=== PATIENT | male | born 1945 | race Caucasian/White ===

== ENCOUNTER 2017-03-25 18:30 | Inpatient (IN) | payer OTHER, MEDICARE ==
[~2017-03-25] VITALS: Ht 172.7 cm; Wt 77.3 kg
[~2017-03-25 18:30] MED LIST: AMLO5TAB PO; ASPI-611 PO; ATOR-2 PO; CLOP75TA35 PO; GABA-532 PO; GLIP5TAB13 PO; LOSA50TA37 PO; TRAZ-143 PO
[2017-03-25] MEDS ORDERED: BUPIVAcaine/PF 2.5 mg/ml (0.25%) 30ml vial IJ ONE ×2 (18:55→19:25)
[2017-03-25] MEDS ORDERED: TETanus/Pertussis (Acell)/Diphther VAC/PF (Tdap-Adult) 0.5ml syringe IM ONE (18:55)
[2017-03-25] MEDS ORDERED: bacitracin 15gm ointment TP ONE ×2 (19:10→22:50)
[2017-03-25] MEDS ORDERED: BUPIVAcaine 0.5% inj/PF 30 ml vial IJ ONE (19:10)
[2017-03-25 19:41] LABS: HEMATOCRIT 38.1 % (42.0-52.0); HEMOGLOBIN 13.1 g/dl (14.0-17.9); LYMPHOCYTES % (AUTO) 16.4 % (21-51); MEAN CORPUSCULAR HEMOGLOBIN 30.5 PG (27.0-31.0); MEAN CORPUSCULAR HGB CONC 34.4 % (33.0-36.5); MEAN CORPUSCULAR VOLUME 88.5 FL (78-98); MEAN PLATELET VOLUME 8.6 FL (7.4-10.4); MONOCYTES % (AUTO) 9.2 % (2-12); NEUTROPHILS % (AUTO) 69.8 % (42-75); PLATELET COUNT 188 X10'3 (140-440); RED CELL DISTRIBUTION WIDTH 12.6 % (11.5-14.5); WHITE BLOOD COUNT 8.9 X10'3 (4.5-11.0)
[2017-03-25 19:42] LABS: BASOPHILS # (AUTO) 0.1 X10'3 (0-0.2); BASOPHILS % (AUTO) 0.7 % (0-1); EOSINOPHILS # (AUTO) 0.3 X10'3 (0-0.9); EOSINOPHILS % (AUTO) 3.9 % (0-6); LYMPHOCYTES # (AUTO) 1.5 X10'3 (1.1-4.8); MONOCYTES # (AUTO) 0.8 X10'3 (0-0.9); NEUTROPHILS # (AUTO) 6.2 X10'3 (1.8-7.7)
[2017-03-25 19:56] LABS: ALANINE AMINOTRANSFERASE 26 U/L (12-78); ALBUMIN 3.7 G/DL (3.4-5.0); ALBUMIN/GLOBULIN RATIO 1.1 (1.1-1.5); ALKALINE PHOSPHATASE 114 IU/L (46-116); ANION GAP 9 (8-16); ASPARTATE AMINO TRANSFERASE 15 U/L (10-37); BILIRUBIN,TOTAL 0.6 MG/DL (0.1-1.0); BLOOD UREA NITROGEN 19 MG/DL (7-18); BUN/CREATININE RATIO 12.8 (5.4-32.0); CALCIUM 8.6 MG/DL (8.5-10.1); CHLORIDE 105 MMOL/L (99-107); CREATININE 1.48 MG/DL (0.60-1.10); GLUCOSE 177 MG/DL (70-104); POTASSIUM 3.6 MMOL/L (3.5-5.1); SODIUM 143 MMOL/L (135-145); TOTAL CARBON DIOXIDE 29.1 MMOL/L (24-32); TOTAL PROTEIN 7.1 G/DL (6.4-8.2); eGFR 47 ML/MIN
[2017-03-25 20:04] LABS: MAGNESIUM 1.9 MG/DL (1.5-2.4)
[2017-03-25 21:15] LABS: ETHANOL < 0.010 GM/DL (0.0-0.010)
[2017-03-25] MEDS ORDERED: METF500T PO (23:27)
[2017-03-26 00:10] LABS: URINE AMPHETAMINE SCREEN NEGATIVE (Neg); URINE BARBITUATE SCREEN NEGATIVE (Neg); URINE BENZODIAZEPINES SCREEN NEGATIVE (Neg); URINE CANNABINOID SCREEN NEGATIVE (Neg); URINE COCAINE SCREEN NEGATIVE (Neg); URINE METHADONE SCREEN NEGATIVE (Neg); URINE OPIATE SCREEN NEGATIVE (Neg); URINE PHENCYCLIDINE SCREEN NEGATIVE (Neg)
[2017-03-26] MEDS ORDERED: dextrose 50%-water 50ml dispensing syringe IV PRN ×2 (00:20)
[2017-03-26] MEDS ORDERED: dextrose ORAL solution 15 GM/59 ML bottle PO PRN ×2 (00:20)
[2017-03-26] MEDS ORDERED: magnesium hydroxide 30ml (MOM) UD suspension PO PRN (00:20)
[2017-03-26] MEDS ORDERED: glucagon, human recombinant 1mg kit SUBCUT PRN (00:20)
[2017-03-26] MEDS ORDERED: mag hydrox/Alum hydrox/simeth 30ml oral suspension PO PRN (00:20)
[2017-03-26] MEDS ORDERED: MESSAGE TO PHARMACY PO ONE (00:20)
[2017-03-26] MEDS ORDERED: ondansetron/PF 4mg/2ml inj IV PRN (00:20)
[2017-03-26] MEDS ORDERED: acetaminophen 325mg tablet PO PRN ×2 (00:20)
[2017-03-26] MEDS: traZODone 50mg tablet PO SCH ×2 (01:55→21:10)
[2017-03-26 02:30] VITALS: BP 144/87
[2017-03-26] MEDS: normal saline 1000ml 1,000 ML IV SCH ×3 (02:40→21:19)
[2017-03-26 07:00] VITALS: BP 133/88
[2017-03-26] MEDS: amLODIPine 5mg tablet PO SCH (08:31)
[2017-03-26] MEDS: gabapentin 300mg capsule PO SCH ×2 (08:32→17:26)
[2017-03-26] MEDS: losartan 50mg tablet PO SCH (08:32)
[2017-03-26] MEDS: clopidogrel 75mg tablet PO SCH (08:32)
[2017-03-26] MEDS: atorvastatin 20mg tablet PO SCH (08:33)
[2017-03-26] MEDS: insulin Lispro (HumaLOG) vial - multi-dose SQ SCH ×3 (09:28→19:23)
[2017-03-26 11:00] VITALS: BP 135/71
[2017-03-26] MEDS ORDERED: HYDROcodone/acetaminophen 5mg/325mg tablet PO PRN (13:25)
[2017-03-26] MEDS: HYDROcodone/acetaminophen 10/325mg tab PO PRN ×2 (14:40→19:25)
[2017-03-26 15:00] VITALS: BP_SYST 129; BP_SYST 131; BP_SYST 134; BP_SYST 138; BP_DIAS 68; BP_DIAS 71; BP_DIAS 72; BP_DIAS 80
[2017-03-26 18:45] VITALS: BP 146/86
[2017-03-26] MEDS ORDERED: Insulin Detemir pen SQ SCH (21:00)
[2017-03-26 22:30] VITALS: BP 135/75
[2017-03-27 02:49] VITALS: BP 134/78
[2017-03-27] MEDS: HYDROcodone/acetaminophen 10/325mg tab PO PRN ×2 (04:24→14:13)
[2017-03-27 06:01] LABS: BASOPHILS # (AUTO) 0.1 X10'3 (0-0.2); BASOPHILS % (AUTO) 0.9 % (0-1); EOSINOPHILS # (AUTO) 0.4 X10'3 (0-0.9); EOSINOPHILS % (AUTO) 7.5 % (0-6); HEMATOCRIT 33.1 % (42.0-52.0); HEMOGLOBIN 11.3 g/dl (14.0-17.9); LYMPHOCYTES # (AUTO) 1.4 X10'3 (1.1-4.8); LYMPHOCYTES % (AUTO) 23.1 % (21-51); MEAN CORPUSCULAR HEMOGLOBIN 30.3 PG (27.0-31.0); MEAN CORPUSCULAR HGB CONC 34.2 % (33.0-36.5); MEAN CORPUSCULAR VOLUME 88.6 FL (78-98); MEAN PLATELET VOLUME 8.9 FL (7.4-10.4); MONOCYTES # (AUTO) 0.6 X10'3 (0-0.9); MONOCYTES % (AUTO) 10.8 % (2-12); NEUTROPHILS # (AUTO) 3.4 X10'3 (1.8-7.7); NEUTROPHILS % (AUTO) 57.7 % (42-75); PLATELET COUNT 143 X10'3 (140-440); RED BLOOD COUNT 3.74 X10'6 (4.70-6.10); RED CELL DISTRIBUTION WIDTH 12.7 % (11.5-14.5); WHITE BLOOD COUNT 5.9 X10'3 (4.5-11.0)
[2017-03-27 06:15] LABS: ALBUMIN 2.9 G/DL (3.4-5.0); ANION GAP 8 (8-16); BLOOD UREA NITROGEN 13 MG/DL (7-18); BUN/CREATININE RATIO 11.5 (5.4-32.0); CALCIUM 7.9 MG/DL (8.5-10.1); CHLORIDE 109 MMOL/L (99-107); CREATININE 1.13 MG/DL (0.60-1.10); GLUCOSE 108 MG/DL (70-104); POTASSIUM 3.7 MMOL/L (3.5-5.1); SODIUM 142 MMOL/L (135-145); TOTAL CARBON DIOXIDE 25.2 MMOL/L (24-32); eGFR 64 ML/MIN
[2017-03-27 07:00] VITALS: BP 133/76
[2017-03-27 08:00] VITALS: BP_SYST 127; BP_SYST 133; BP_SYST 137; BP_DIAS 74; BP_DIAS 77; BP_DIAS 80
[2017-03-27] MEDS: clopidogrel 75mg tablet PO SCH (08:28)
[2017-03-27] MEDS: losartan 50mg tablet PO SCH (08:29)
[2017-03-27] MEDS: amLODIPine 5mg tablet PO SCH (08:29)
[2017-03-27] MEDS: atorvastatin 20mg tablet PO SCH (08:29)
[2017-03-27] MEDS: insulin Lispro (HumaLOG) vial - multi-dose SQ SCH ×2 (08:38→14:11)
[2017-03-27] MEDS: normal saline 1000ml 1,000 ML IV SCH ×2 (08:43→16:16)
[2017-03-27 11:00] VITALS: BP 137/75
[2017-03-27] MEDS: gabapentin 300mg capsule PO SCH ×3 (11:25→16:46)
[2017-03-27 15:00] VITALS: BP 135/81
== END 2017-03-27 17:44 | disposition home or self-care (01) | DRG 988 ==
LOC: ER 18:31 → ED HOLD 03-26 00:16 → PCU 3S 03-26 02:20
PROVIDERS: ADMIT Internal Medicine; ATTEND Family Medicine
PROC: 0JQ10ZZ Repair Face Subcutaneous Tissue and Fascia, Open Approach (ICD-10-PCS; principal; 2017-03-26)
DX: R55 Syncope and collapse (principal); N17.9 Acute kidney failure, unspecified; E11.65 Type 2 diabetes mellitus with hyperglycemia; E11.22 Type 2 diabetes mellitus with diabetic chronic kidney disease; E86.0 Dehydration; S01.81XA Laceration without foreign body of other part of head, initial encounter; D64.9 Anemia, unspecified; F12.90 Cannabis use, unspecified, uncomplicated; S06.0X1A Concussion with loss of consciousness of 30 minutes or less, initial encounter; H26.9 Unspecified cataract; H54.8 Legal blindness, as defined in USA; F41.0 Panic disorder [episodic paroxysmal anxiety]; I12.9 Hypertensive chronic kidney disease with stage 1 through stage 4 chronic kidney disease, or unspecified chronic kidney disease; I25.10 Atherosclerotic heart disease of native coronary artery without angina pectoris; I35.1 Nonrheumatic aortic (valve) insufficiency; N18.9 Chronic kidney disease, unspecified; W18.39XA Other fall on same level, initial encounter; I25.2 Old myocardial infarction; Z79.02 Long term (current) use of antithrombotics/antiplatelets; Z79.84 Long term (current) use of oral hypoglycemic drugs; Z79.899 Other long term (current) drug therapy; Z86.61 Personal history of infections of the central nervous system; Z86.73 Personal history of transient ischemic attack (TIA), and cerebral infarction without residual deficits; Y92.89 Other specified places as the place of occurrence of the external cause; Y93.89 Activity, other specified; Y99.8 Other external cause status
CPT/HCPCS: 12055; 36415; 70450; 70544; 70547; 70551; 71045; 80048; 80053; 80305; 80320; 82948; 83735; 83880; 84443; 84484; 85025; 87070; 90471; 90715; 93005; 93306; 93880; 97116; 97162; 99285; A6213; A6449; J2270; J3490; J7030

== ENCOUNTER 2023-12-27 15:55 | Inpatient (IN) | payer OTHER, MEDICARE ==
[~2023-12-27] VITALS: Ht 172.7 cm; Wt 72.7 kg
[~2023-12-27 15:55] MED LIST changes: -ASPI-611 PO; +CLOP75TA34 PO; -CLOP75TA35 PO; -GLIP5TAB13 PO; +GLIP5TAB23 PO; -LOSA50TA37 PO; +LOSA50TA64 PO; +METF500T PO; -TRAZ-143 PO; +TRAZ-251 PO
[2023-12-27 16:41] LABS: BASOPHILS % (AUTO) 0.7 % (0-1); EOSINOPHILS # (AUTO) 0.1 X10'3 (0-0.9); EOSINOPHILS % (AUTO) 0.9 % (0-6); HEMATOCRIT 39.1 % (42.0-52.0); HEMOGLOBIN 13.2 g/dl (14.0-17.9); LYMPHOCYTES # (AUTO) 0.8 X10'3 (1.1-4.8); LYMPHOCYTES % (AUTO) 13.3 % (21-51); MEAN CORPUSCULAR HEMOGLOBIN 30.8 PG (27.0-31.0); MEAN CORPUSCULAR HGB CONC 33.7 g/dL (33.0-36.5); MEAN CORPUSCULAR VOLUME 91.5 FL (78-98); MONOCYTES # (AUTO) 0.7 X10'3 (0-0.9); MONOCYTES % (AUTO) 11.1 % (2-12); NEUTROPHILS # (AUTO) 4.5 X10'3 (1.8-7.7); PLATELET COUNT 174 X10'3 (140-440); RED BLOOD COUNT 4.27 X10'6 (4.70-6.10); RED CELL DISTRIBUTION WIDTH 12.7 % (11.5-14.5); WHITE BLOOD COUNT 6.1 X10'3 (4.5-11.0)
[2023-12-27 16:51] LABS: APTT 26 SECONDS (22-32); INR 1.2 INR
[2023-12-27 17:06] LABS: ALANINE AMINOTRANSFERASE 16 U/L (12-78); ALKALINE PHOSPHATASE 82 IU/L (46-116); ANION GAP 6 (8-16); ASPARTATE AMINO TRANSFERASE 12 U/L (10-37); BILIRUBIN,TOTAL 0.7 MG/DL (0.1-1.0); BLOOD UREA NITROGEN 24 MG/DL (7-18); CALCIUM 8.5 MG/DL (8.5-10.1); CHLORIDE 109 MMOL/L (99-107); CREATININE 1.72 MG/DL (0.60-1.10); GLUCOSE 284 MG/DL (70-104); POTASSIUM 4.5 MMOL/L (3.5-5.1); SODIUM 140 MMOL/L (135-145); TOTAL CARBON DIOXIDE 25.2 MMOL/L (24-32); TOTAL PROTEIN 6.1 G/DL (6.4-8.2); eCRCL 35 ML/MIN; eGFR 39 ML/MIN
[2023-12-27] MEDS: normal saline 1000ML IV soln IVB ONE (17:11)
[2023-12-27 17:14] LABS: BILIRUBIN,DIRECT 0.1 MG/DL (0-0.3); CREATINE KINASE 41 U/L (39-308); MAGNESIUM 2.1 MG/DL (1.5-2.4); PRO BRAIN NATRIURETIC PEPTIDE 575 PG/ML (0-450)
[2023-12-27 17:19] LABS: ETHANOL < 10 MG/DL (<10)
[2023-12-27 17:33] LABS: BILIRUBIN,URINE NEGATIVE (Neg); CLARITY,URINE CLOUDY (Clear); COLOR,URINE YELLOW (Yellow); GLUCOSE, URINE >=1000 mg/dl (Neg); KETONES,URINE NEGATIVE (Neg); LEUKOCYTE ESTERASE ,URINE MODERATE (Neg); NITRITES, URINE POSITIVE (Neg); OCCULT BLOOD,URINE SMALL (Neg); PROTEIN,URINE NEGATIVE (Neg); UA COLLECTION TYPE VOIDED; UROBILINOGEN,URINE 0.2 E.U/dL (0.2-1.0)
[2023-12-27 17:42] LABS: WBC CLUMPS,URINE MANY /HPF (NEGATIVE); WBC,URINE TNTC /HPF (0-4)
[2023-12-27 17:43] LABS: BACTERIA,URINE 2+ /HPF (Neg); RBC,URINE 0-2 /HPF (0-2)
[2023-12-27 17:44] LABS: SQUAMOUS EPITHELIAL CELL,UR FEW /LPF (FEW)
[2023-12-27] MEDS ORDERED: LISI20TA28 PO (17:50)
[2023-12-27] MEDS: CefTRIAXone 2gm/D5W 50ml BAG 50 ML IV ONE (18:02)
[2023-12-27] MEDS: normal saline 1000ML IV soln IV ONE (18:03)
[2023-12-27] MEDS ORDERED: magnesium sulf-water 4G/100mL 100 ML IV PRN (18:50)
[2023-12-27] MEDS ORDERED: magnesium Cl slow-release 64mg tablet PO PRN (18:50)
[2023-12-27] MEDS ORDERED: potassium Cl 20 mEq SR tablet PO PRN ×2 (18:50)
[2023-12-27] MEDS ORDERED: acetaminophen 325mg tablet PO PRN (18:50)
[2023-12-27] MEDS ORDERED: magnesium sulf-water 2g/50mL 50 ML IV PRN (18:50)
[2023-12-27] MEDS ORDERED: potassium Cl 40MEQ/1/2NS 520ml 520 ML IV PRN (18:50)
[2023-12-27] MEDS: ringers solution, lacted 1,000 ML IV SCH (19:42)
[2023-12-27] MEDS: K and/or MAG REPLACEMENT MC SCH (20:00)
[2023-12-27] MEDS: heparin, porcine 5000 units/ml vial SQ SCH (22:22)
[2023-12-28] MEDS: gabapentin 300mg capsule PO SCH (00:20)
[2023-12-28] MEDS ORDERED: DEXTROSE 15 GM of carb/4 tabs (each vial/BOTTLE has 4 tablets) PO PRN ×2 (01:40)
[2023-12-28] MEDS ORDERED: glucagon, human recombinant 1mg kit SUBCUT PRN (01:40)
[2023-12-28] MEDS ORDERED: dextrose 50%-water 50ml dispensing syringe IV PRN ×2 (01:40)
[2023-12-28] MEDS: INSULIN LISPRO 100 UNIT/ML INSULN.PEN MULTI-DOSE SQ SCH (07:00)
[2023-12-28 07:04] VITALS: BP 122/65; PULSE 61; RESP 15; TEMP 98.2; O2SAT 96
[2023-12-28 08:03] LABS: BASOPHILS # (AUTO) 0.1 X10'3 (0-0.2); BASOPHILS % (AUTO) 0.8 % (0-1); EOSINOPHILS # (AUTO) 0.2 X10'3 (0-0.9); EOSINOPHILS % (AUTO) 2.3 % (0-6); HEMATOCRIT 38.2 % (42.0-52.0); HEMOGLOBIN 13.1 g/dl (14.0-17.9); LYMPHOCYTES # (AUTO) 1.4 X10'3 (1.1-4.8); LYMPHOCYTES % (AUTO) 19.9 % (21-51); MEAN CORPUSCULAR HGB CONC 34.2 g/dL (33.0-36.5); MEAN CORPUSCULAR VOLUME 90.5 FL (78-98); MEAN PLATELET VOLUME 9.6 FL (7.4-10.4); MONOCYTES # (AUTO) 0.8 X10'3 (0-0.9); MONOCYTES % (AUTO) 12.2 % (2-12); NEUTROPHILS # (AUTO) 4.5 X10'3 (1.8-7.7); NEUTROPHILS % (AUTO) 64.8 % (42-75); PLATELET COUNT 178 X10'3 (140-440); RED BLOOD COUNT 4.22 X10'6 (4.70-6.10); RED CELL DISTRIBUTION WIDTH 12.9 % (11.5-14.5); WHITE BLOOD COUNT 6.9 X10'3 (4.5-11.0)
[2023-12-28] MEDS: lisinopril 20mg tablet PO SCH (08:17)
[2023-12-28] MEDS: CefTRIAXone/D5W-Rocephin 1gm 50 ML IV SCH (08:18)
[2023-12-28 08:46] LABS: ALANINE AMINOTRANSFERASE 18 U/L (12-78); ALBUMIN 2.8 G/DL (3.4-5.0); ALBUMIN/GLOBULIN RATIO 0.9 (1.1-1.5); ALKALINE PHOSPHATASE 74 IU/L (46-116); ANION GAP 6 (8-16); ASPARTATE AMINO TRANSFERASE 17 U/L (10-37); BILIRUBIN,TOTAL 0.5 MG/DL (0.1-1.0); BLOOD UREA NITROGEN 19 MG/DL (7-18); BUN/CREATININE RATIO 14.7 (10.0-20.0); CALCIUM 8.1 MG/DL (8.5-10.1); CHLORIDE 112 MMOL/L (99-107); CREATININE 1.29 MG/DL (0.60-1.10); GLUCOSE 148 MG/DL (70-104); PHOSPHORUS 2.9 MG/DL (2.3-4.5); POTASSIUM 3.9 MMOL/L (3.5-5.1); SODIUM 143 MMOL/L (135-145); TOTAL CARBON DIOXIDE 24.7 MMOL/L (24-32); TOTAL PROTEIN 5.9 G/DL (6.4-8.2); eCRCL 46 ML/MIN; eGFR 54 ML/MIN
[2023-12-28 08:55] LABS: HEMOGLOBIN A1C 8.5 % (4.5-6.2)
[2023-12-28 10:00] VITALS: BP 119/65; PULSE 61; RESP 16; TEMP 98.4; O2SAT 94
[2023-12-28] MEDS ORDERED: CIPR-259 PO (12:18)
[2023-12-28] MEDS: levoFLOXACIN-Levaquin 500mg/D5 100 ML IV SCH (17:53)
[2023-12-28 18:00] VITALS: BP 130/76; PULSE 60; RESP 16; TEMP 97.7; O2SAT 94
[2023-12-28 20:00] VITALS: RESP 18; O2SAT 95
[2023-12-28 22:00] VITALS: BP_SYST 118; BP_SYST 123; BP_DIAS 66; BP_DIAS 68; PULSE 61; PULSE 66; RESP 16; TEMP 97.9; O2SAT 96
[2023-12-29 05:00] VITALS: BP 115/71; PULSE 59; RESP 16; TEMP 98.3; O2SAT 94
[2023-12-29 07:48] LABS: BASOPHILS # (AUTO) 0.1 X10'3 (0-0.2); BASOPHILS % (AUTO) 0.8 % (0-1); EOSINOPHILS # (AUTO) 0.1 X10'3 (0-0.9); HEMOGLOBIN 13.1 g/dl (14.0-17.9); LYMPHOCYTES # (AUTO) 1.4 X10'3 (1.1-4.8); LYMPHOCYTES % (AUTO) 21.6 % (21-51); MEAN CORPUSCULAR HEMOGLOBIN 31.3 PG (27.0-31.0); MEAN CORPUSCULAR HGB CONC 34.5 g/dL (33.0-36.5); MEAN CORPUSCULAR VOLUME 90.5 FL (78-98); MEAN PLATELET VOLUME 9.8 FL (7.4-10.4); MONOCYTES # (AUTO) 0.7 X10'3 (0-0.9); MONOCYTES % (AUTO) 9.9 % (2-12); NEUTROPHILS # (AUTO) 4.3 X10'3 (1.8-7.7); NEUTROPHILS % (AUTO) 65.7 % (42-75); PLATELET COUNT 157 X10'3 (140-440); RED CELL DISTRIBUTION WIDTH 12.6 % (11.5-14.5); WHITE BLOOD COUNT 6.6 X10'3 (4.5-11.0)
[2023-12-29 08:14] LABS: ALANINE AMINOTRANSFERASE 13 U/L (12-78); ALBUMIN 2.8 G/DL (3.4-5.0); ALBUMIN/GLOBULIN RATIO 0.9 (1.1-1.5); ALKALINE PHOSPHATASE 77 IU/L (46-116); ANION GAP 6 (8-16); ASPARTATE AMINO TRANSFERASE 11 U/L (10-37); BILIRUBIN,TOTAL 0.6 MG/DL (0.1-1.0); BLOOD UREA NITROGEN 23 MG/DL (7-18); BUN/CREATININE RATIO 15.6 (10.0-20.0); CALCIUM 8.4 MG/DL (8.5-10.1); CHLORIDE 108 MMOL/L (99-107); CREATININE 1.47 MG/DL (0.60-1.10); GLUCOSE 124 MG/DL (70-104); MAGNESIUM 1.9 MG/DL (1.5-2.4); PHOSPHORUS 3.2 MG/DL (2.3-4.5); POTASSIUM 3.9 MMOL/L (3.5-5.1); SODIUM 140 MMOL/L (135-145); TOTAL CARBON DIOXIDE 25.9 MMOL/L (24-32); eCRCL 41 ML/MIN; eGFR 46 ML/MIN
[2023-12-29] MEDS: gabapentin 300mg capsule PO SCH (09:27)
[2023-12-29 10:00] VITALS: BP 99/65; PULSE 69; RESP 16; TEMP 97.7; O2SAT 94
[2023-12-29 10:03] VITALS: BP_SYST 99; PULSE 69
[2023-12-29] MEDS ORDERED: LEVO-65 PO (10:04)
[2023-12-29] MEDS ORDERED: lactose-reduced food (Ensure Enlive) - 237ml bottle PO SCH (13:00)
[2023-12-29] MEDS: nystatin 15 GM powder TP SCH (17:52)
[2023-12-30] MEDS ORDERED: levoFLOXACIN-Levaquin 250mg/D5 50 ML IV SCH (08:00)
== END 2023-12-29 18:50 | disposition home or self-care (01) | DRG 871 ==
LOC: ER 15:55 → ED HOLD 18:25 → ORTHO 4S 12-28 07:00
PROVIDERS: ADMIT Internal Medicine; ATTEND Internal Medicine
DX: A40.1 Sepsis due to streptococcus, group B (principal); G93.41 Metabolic encephalopathy; N30.01 Acute cystitis with hematuria; F03.90 Unspecified dementia, unspecified severity, without behavioral disturbance, psychotic disturbance, mood disturbance, and anxiety; I10 Essential (primary) hypertension; E11.9 Type 2 diabetes mellitus without complications; R55 Syncope and collapse; Z86.73 Personal history of transient ischemic attack (TIA), and cerebral infarction without residual deficits
CPT/HCPCS: 36415; 70450; 71045; 80048; 80053; 80076; 80320; 81001; 82550; 82948; 83036; 83605; 83735; 83874; 83880; 84100; 84145; 84484; 85025; 85610; 85730; 87040; 87077; 87088; 87186; 93005; 93306; 97161; 97530; 99285; A6258; G0378; J0696; J1644; J1815; J1956; J7030; J7120

== ENCOUNTER 2024-02-08 14:24 | Inpatient (IN) | payer MEDICARE ==
[~2024-02-08] VITALS: Ht 172.7 cm; Wt 65.8 kg
[~2024-02-08 14:24] MED LIST changes: +AMLO2.5T2 PO; -AMLO5TAB PO; +APIX5TAB3 PO; +ASPI81TA52 PO; -ATOR-2 PO; +ATOR-429 PO; -CLOP75TA34 PO; +EMPA1TAB PO; -GABA-532 PO; +GLIM4TAB7 PO; -GLIP5TAB23 PO; +LANTUS SQ; +LOSA-415 PO; -LOSA50TA64 PO; -METF500T PO; -TRAZ-251 PO
[2024-02-08 14:57] LABS: BASOPHILS # (AUTO) 0.1 X10'3 (0-0.2); EOSINOPHILS % (AUTO) 0.7 % (0-6); HEMOGLOBIN 12.9 g/dl (14.0-17.9); LYMPHOCYTES # (AUTO) 1.1 X10'3 (1.1-4.8); MEAN CORPUSCULAR HEMOGLOBIN 31.5 PG (27.0-31.0); MEAN CORPUSCULAR VOLUME 92.9 FL (78-98); MEAN PLATELET VOLUME 9.4 FL (7.4-10.4); MONOCYTES # (AUTO) 0.6 X10'3 (0-0.9); MONOCYTES % (AUTO) 9.4 % (2-12); NEUTROPHILS # (AUTO) 4.1 X10'3 (1.8-7.7); NEUTROPHILS % (AUTO) 69.9 % (42-75); PLATELET COUNT 163 X10'3 (140-440); RED BLOOD COUNT 4.09 X10'6 (4.70-6.10); RED CELL DISTRIBUTION WIDTH 13.5 % (11.5-14.5); WHITE BLOOD COUNT 5.9 X10'3 (4.5-11.0)
[2024-02-08] MEDS: normal saline 1000ml 1,000 ML IV ONE (14:57)
[2024-02-08 15:22] LABS: ALANINE AMINOTRANSFERASE 19 U/L (12-78); ALBUMIN 3.3 G/DL (3.4-5.0); ALBUMIN/GLOBULIN RATIO 0.9 (1.1-1.5); ALKALINE PHOSPHATASE 115 IU/L (46-116); ANION GAP 7 (8-16); ASPARTATE AMINO TRANSFERASE 18 U/L (10-37); BILIRUBIN,TOTAL 0.7 MG/DL (0.1-1.0); BLOOD UREA NITROGEN 22 MG/DL (7-18); BUN/CREATININE RATIO 14.8 (10.0-20.0); CALCIUM 8.7 MG/DL (8.5-10.1); CHLORIDE 102 MMOL/L (99-107); CREATININE 1.49 MG/DL (0.60-1.10); ETHANOL < 10 MG/DL (<10); GLUCOSE 250 MG/DL (70-104); POTASSIUM 4.6 MMOL/L (3.5-5.1); PRO BRAIN NATRIURETIC PEPTIDE 624 PG/ML (0-450); SODIUM 135 MMOL/L (135-145); TOTAL CARBON DIOXIDE 25.7 MMOL/L (24-32); TOTAL PROTEIN 6.9 G/DL (6.4-8.2); eCRCL 40 ML/MIN; eGFR 46 ML/MIN
[2024-02-08 18:05] LABS: BILIRUBIN,URINE NEGATIVE (Neg); CLARITY,URINE SLIGHTLY CLOUDY (Clear); COLOR,URINE YELLOW (Yellow); GLUCOSE, URINE >=1000 mg/dl (Neg); KETONES,URINE NEGATIVE (Neg); LEUKOCYTE ESTERASE ,URINE NEGATIVE (Neg); NITRITES, URINE NEGATIVE (Neg); OCCULT BLOOD,URINE LARGE (Neg); PH,URINE 6.5 (4.8-8.0); PROTEIN,URINE NEGATIVE (Neg); UROBILINOGEN,URINE 0.2 E.U/dL (0.2-1.0)
[2024-02-08 18:08] LABS: UA COLLECTION TYPE CLN CATCH MIDSTREAM
[2024-02-08 18:11] LABS: BACTERIA,URINE FEW /HPF (Neg); RBC,URINE 50-100 /HPF (0-2); SQUAMOUS EPITHELIAL CELL,UR FEW /LPF (FEW); WBC,URINE 0-4 /HPF (0-4)
[2024-02-08] MEDS ORDERED: dextrose 50%-water 50ml dispensing syringe IV PRN ×2 (20:55)
[2024-02-08] MEDS ORDERED: glucagon, human recombinant 1mg kit SUBCUT PRN (20:55)
[2024-02-08] MEDS ORDERED: DEXTROSE 15 GM of carb/4 tabs (each vial/BOTTLE has 4 tablets) PO PRN ×2 (20:55)
[2024-02-08] MEDS: INSULIN LISPRO 100 UNIT/ML INSULN.PEN MULTI-DOSE SQ SCH (21:00)
[2024-02-08] MEDS ORDERED: morphine 2 MG/ML inj. syringe IV PRN ×2 (21:00)
[2024-02-08] MEDS: normal saline 1000ml 1,000 ML IV SCH (21:00)
[2024-02-08] MEDS: amLODIPine 5mg tablet PO SCH (21:44)
[2024-02-08] MEDS: aspirin 81mg, enteric-coated 1 TAB TABLET.DR PO ONE (21:46)
[2024-02-08] MEDS: apixaban 5mg tablet PO SCH (21:49)
[2024-02-08] MEDS: insulin glargine (Lantus) pen - multi-dose SQ SCH (22:19)
[2024-02-08 23:30] VITALS: BP 159/74; PULSE 60; RESP 19; TEMP 98.2; O2SAT 95
[2024-02-09] VITALS (8 sets, daily range): BP systolic 158–171; BP diastolic 76–87; PULSE 65–75; RESP 12–19; TEMP 97.5–98.1; O2SAT 94–99
[2024-02-09] MEDS: diphenhydrAMINE 25mg capsule PO ONE (04:06)
[2024-02-09 06:22] LABS: BASOPHILS % (AUTO) 0.9 % (0-1); EOSINOPHILS # (AUTO) 0.1 X10'3 (0-0.9); EOSINOPHILS % (AUTO) 1.6 % (0-6); HEMATOCRIT 38.4 % (42.0-52.0); HEMOGLOBIN 13.2 g/dl (14.0-17.9); LYMPHOCYTES # (AUTO) 1.3 X10'3 (1.1-4.8); LYMPHOCYTES % (AUTO) 24.3 % (21-51); MEAN CORPUSCULAR HEMOGLOBIN 31.6 PG (27.0-31.0); MEAN CORPUSCULAR HGB CONC 34.3 g/dL (33.0-36.5); MEAN CORPUSCULAR VOLUME 92.1 FL (78-98); MEAN PLATELET VOLUME 9.5 FL (7.4-10.4); MONOCYTES # (AUTO) 0.6 X10'3 (0-0.9); MONOCYTES % (AUTO) 11.4 % (2-12); NEUTROPHILS # (AUTO) 3.4 X10'3 (1.8-7.7); NEUTROPHILS % (AUTO) 61.8 % (42-75); PLATELET COUNT 154 X10'3 (140-440); RED BLOOD COUNT 4.17 X10'6 (4.70-6.10); WHITE BLOOD COUNT 5.5 X10'3 (4.5-11.0)
[2024-02-09 06:30] LABS: APTT 29 SECONDS (22-32); INR 1.2 INR
[2024-02-09 06:38] LABS: ALANINE AMINOTRANSFERASE 15 U/L (12-78); ALBUMIN 3.3 G/DL (3.4-5.0); ALBUMIN/GLOBULIN RATIO 0.9 (1.1-1.5); ALKALINE PHOSPHATASE 104 IU/L (46-116); ANION GAP 7 (8-16); ASPARTATE AMINO TRANSFERASE 18 U/L (10-37); BILIRUBIN,TOTAL 0.8 MG/DL (0.1-1.0); BLOOD UREA NITROGEN 19 MG/DL (7-18); BUN/CREATININE RATIO 13.8 (10.0-20.0); CALCIUM 8.5 MG/DL (8.5-10.1); CHLORIDE 107 MMOL/L (99-107); CREATININE 1.38 MG/DL (0.60-1.10); GLUCOSE 98 MG/DL (70-104); MAGNESIUM 2.2 MG/DL (1.5-2.4); PHOSPHORUS 3.3 MG/DL (2.3-4.5); POTASSIUM 4.1 MMOL/L (3.5-5.1); SODIUM 141 MMOL/L (135-145); TOTAL CARBON DIOXIDE 26.7 MMOL/L (24-32); TOTAL PROTEIN 6.8 G/DL (6.4-8.2); eCRCL 30 ML/MIN; eGFR 50 ML/MIN
[2024-02-09] MEDS: atorvastatin 20mg tablet PO SCH (07:38)
[2024-02-09] MEDS: aspirin 81mg, enteric-coated 1 TAB TABLET.DR PO SCH (07:38)
[2024-02-09] MEDS: docusate sod 100mg capsule PO SCH (07:38)
[2024-02-09] MEDS: losartan 50mg tablet PO SCH (08:00)
[2024-02-09] MEDS ORDERED: amLODIPine 5mg tablet PO SCH (20:25)
[2024-02-09] MEDS: amLODIPine 5mg tablet PO SCH (20:36)
[2024-02-10] VITALS: BP 122/67; PULSE 60; RESP 17; TEMP 97.8; O2SAT 95
[2024-02-10 06:00] VITALS: BP 139/73; PULSE 63; RESP 16; TEMP 97.9; O2SAT 97
[2024-02-10] MEDS: apixaban 5mg tablet PO SCH (07:20)
[2024-02-10 08:00] VITALS: RESP 15; O2SAT 98
[2024-02-10 09:02] LABS: BASOPHILS % (AUTO) 0.7 % (0-1); EOSINOPHILS # (AUTO) 0.1 X10'3 (0-0.9); EOSINOPHILS % (AUTO) 1.8 % (0-6); HEMOGLOBIN 13.6 g/dl (14.0-17.9); LYMPHOCYTES # (AUTO) 1.1 X10'3 (1.1-4.8); LYMPHOCYTES % (AUTO) 18.1 % (21-51); MEAN CORPUSCULAR HEMOGLOBIN 31.5 PG (27.0-31.0); MEAN CORPUSCULAR VOLUME 92.4 FL (78-98); MEAN PLATELET VOLUME 10.1 FL (7.4-10.4); MONOCYTES # (AUTO) 0.6 X10'3 (0-0.9); MONOCYTES % (AUTO) 10.1 % (2-12); NEUTROPHILS # (AUTO) 4.4 X10'3 (1.8-7.7); NEUTROPHILS % (AUTO) 69.3 % (42-75); PLATELET COUNT 168 X10'3 (140-440); RED BLOOD COUNT 4.33 X10'6 (4.70-6.10); RED CELL DISTRIBUTION WIDTH 13.3 % (11.5-14.5); WHITE BLOOD COUNT 6.3 X10'3 (4.5-11.0)
[2024-02-10 09:06] LABS: APTT 28 SECONDS (22-32); INR 1.1 INR; PROTHROMBIN TIME 11.5 SECONDS (9.0-12.0)
[2024-02-10 09:29] LABS: ALANINE AMINOTRANSFERASE 18 U/L (12-78); ALBUMIN 3.3 G/DL (3.4-5.0); ALBUMIN/GLOBULIN RATIO 0.9 (1.1-1.5); ALKALINE PHOSPHATASE 108 IU/L (46-116); ANION GAP 8 (8-16); ASPARTATE AMINO TRANSFERASE 17 U/L (10-37); BILIRUBIN,TOTAL 0.7 MG/DL (0.1-1.0); BLOOD UREA NITROGEN 25 MG/DL (7-18); BUN/CREATININE RATIO 17.1 (10.0-20.0); CALCIUM 8.2 MG/DL (8.5-10.1); CHLORIDE 105 MMOL/L (99-107); CREATININE 1.46 MG/DL (0.60-1.10); GLUCOSE 122 MG/DL (70-104); PHOSPHORUS 3.5 MG/DL (2.3-4.5); POTASSIUM 3.9 MMOL/L (3.5-5.1); SODIUM 140 MMOL/L (135-145); TOTAL CARBON DIOXIDE 27.2 MMOL/L (24-32); eCRCL 39 ML/MIN; eGFR 47 ML/MIN
[2024-02-10 10:00] VITALS: BP 136/75; PULSE 66; RESP 14; TEMP 97.2; O2SAT 97
[2024-02-10 11:13] VITALS: BP 139/73; PULSE 63; RESP 16; TEMP 97.9; O2SAT 97
[2024-02-10] MEDS ORDERED: LOSA-415 PO (13:08)
[2024-02-10] MEDS ORDERED: ASPI-1071 PO (13:08)
== END 2024-02-10 14:30 | disposition home health service (06) | DRG 64 ==
LOC: ER 14:25 → ED HOLD 21:04 → ORTHO 4S 22:30
PROVIDERS: ADMIT Internal Medicine Critical Care Medicine; ATTEND Family Medicine
DX: I63.9 Cerebral infarction, unspecified (principal); N17.0 Acute kidney failure with tubular necrosis; N18.9 Chronic kidney disease, unspecified; I12.9 Hypertensive chronic kidney disease with stage 1 through stage 4 chronic kidney disease, or unspecified chronic kidney disease; F03.90 Unspecified dementia, unspecified severity, without behavioral disturbance, psychotic disturbance, mood disturbance, and anxiety; E11.22 Type 2 diabetes mellitus with diabetic chronic kidney disease; I48.0 Paroxysmal atrial fibrillation; Z79.01 Long term (current) use of anticoagulants; Z79.4 Long term (current) use of insulin; Z79.82 Long term (current) use of aspirin; Z79.84 Long term (current) use of oral hypoglycemic drugs; Z83.3 Family history of diabetes mellitus; Z86.73 Personal history of transient ischemic attack (TIA), and cerebral infarction without residual deficits
CPT/HCPCS: 36415; 70450; 70544; 70547; 70551; 71045; 80053; 80320; 81001; 82948; 83735; 83880; 84100; 84484; 85025; 85610; 85730; 87081; 93005; 97110; 97116; 97163; 97530; 99285; A4340; A6258; A6590; C1758; G0378; J1815; J7030; Q0163

== ENCOUNTER 2024-03-20 16:10 | Inpatient (IN) | payer OTHER, MEDICARE ==
[~2024-03-20] VITALS: Ht 175.3 cm; Wt 81.8 kg
[~2024-03-20 16:10] MED LIST changes: +ASPI-1071 PO; -ASPI81TA52 PO
[2024-03-20 17:04] LABS: BASOPHILS % (AUTO) 0.3 % (0-1); EOSINOPHILS # (AUTO) 0.1 X10'3 (0-0.9); EOSINOPHILS % (AUTO) 1.2 % (0-6); HEMATOCRIT 31.5 % (42.0-52.0); LYMPHOCYTES % (AUTO) 10.9 % (21-51); MEAN CORPUSCULAR HEMOGLOBIN 32.8 PG (27.0-31.0); MEAN PLATELET VOLUME 9.5 FL (7.4-10.4); MONOCYTES # (AUTO) 0.7 X10'3 (0-0.9); MONOCYTES % (AUTO) 7.8 % (2-12); NEUTROPHILS # (AUTO) 7.7 X10'3 (1.8-7.7); NEUTROPHILS % (AUTO) 79.8 % (42-75); PLATELET COUNT 245 X10'3 (140-440); RED BLOOD COUNT 3.36 X10'6 (4.70-6.10); RED CELL DISTRIBUTION WIDTH 13.5 % (11.5-14.5); WHITE BLOOD COUNT 9.6 X10'3 (4.5-11.0)
[2024-03-20 17:08] LABS: ALBUMIN 3.4 G/DL (3.4-5.0); ANION GAP 9 (8-16); BLOOD UREA NITROGEN 39 MG/DL (7-18); BUN/CREATININE RATIO 25.5 (10.0-20.0); CHLORIDE 106 MMOL/L (99-107); CREATININE 1.53 MG/DL (0.60-1.10); GLUCOSE 311 MG/DL (70-104); POTASSIUM 4.8 MMOL/L (3.5-5.1); SODIUM 139 MMOL/L (135-145); TOTAL CARBON DIOXIDE 24.4 MMOL/L (24-32); eCRCL 40 ML/MIN; eGFR 44 ML/MIN
[2024-03-20 17:11] LABS: APTT 24 SECONDS (22-32); INR 1.1 INR; PROTHROMBIN TIME 11.2 SECONDS (9.0-12.0)
[2024-03-20] MEDS ORDERED: acetaminophen 325mg tablet PO PRN (23:35)
[2024-03-20] MEDS ORDERED: magnesium hydroxide 30ml (MOM) UD suspension PO PRN (23:35)
[2024-03-20] MEDS ORDERED: potassium Cl 40MEQ/1/2NS 520ml 520 ML IV PRN (23:35)
[2024-03-20] MEDS ORDERED: magnesium Cl slow-release 64mg tablet PO PRN (23:35)
[2024-03-20] MEDS ORDERED: magnesium sulf-water 4G/100mL 100 ML IV PRN (23:35)
[2024-03-20] MEDS ORDERED: ondansetron/PF 4mg/2ml inj IV PRN (23:35)
[2024-03-20] MEDS ORDERED: mag hydrox/Alum hydrox/simeth 30ml oral suspension PO PRN (23:35)
[2024-03-20] MEDS ORDERED: magnesium sulf-water 2g/50mL 50 ML IV PRN (23:35)
[2024-03-20] MEDS ORDERED: morphine 2 MG/ML inj. syringe IV PRN (23:35)
[2024-03-20] MEDS: pantoprazole 40 MG vial IV ONE (23:35)
[2024-03-20] MEDS ORDERED: potassium Cl 20 mEq SR tablet PO PRN ×2 (23:35)
[2024-03-20 23:41] LABS: OCCULT BLOOD STOOL POSITIVE (Neg)
[2024-03-20] MEDS: normal saline 1000ml 1,000 ML IV SCH (23:59)
[2024-03-21] VITALS (11 sets, daily range): BP systolic 109–161; BP diastolic 61–78; PULSE 64–80; RESP 10–18; TEMP 97.3–98.7; O2SAT 93–99
[2024-03-21 00:08] LABS: PRO BRAIN NATRIURETIC PEPTIDE 494 PG/ML (0-450)
[2024-03-21 00:11] LABS: HEMOGLOBIN A1C 7.3 % (4.5-6.2)
[2024-03-21 00:12] LABS: HEMOGLOBIN 9.2 g/dl (14.0-17.9); MEAN CORPUSCULAR HEMOGLOBIN 32.7 PG (27.0-31.0); MEAN CORPUSCULAR HGB CONC 35.2 g/dL (33.0-36.5); MEAN CORPUSCULAR VOLUME 93.1 FL (78-98); MEAN PLATELET VOLUME 9.5 FL (7.4-10.4); PLATELET COUNT 183 X10'3 (140-440); RED BLOOD COUNT 2.79 X10'6 (4.70-6.10); RED CELL DISTRIBUTION WIDTH 13.4 % (11.5-14.5)
[2024-03-21] MEDS ORDERED: dextrose 50%-water 50ml dispensing syringe IV PRN ×2 (01:15)
[2024-03-21] MEDS ORDERED: glucagon, human recombinant 1mg kit SUBCUT PRN (01:15)
[2024-03-21] MEDS ORDERED: DEXTROSE 15 GM of carb/4 tabs (each vial/BOTTLE has 4 tablets) PO PRN ×2 (01:15)
[2024-03-21] MEDS: INSULIN LISPRO 100 UNIT/ML INSULN.PEN MULTI-DOSE SQ SCH (07:00)
[2024-03-21 07:33] LABS: ALANINE AMINOTRANSFERASE 19 U/L (12-78); ALBUMIN/GLOBULIN RATIO 1.1 (1.1-1.5); ALKALINE PHOSPHATASE 107 IU/L (46-116); ANION GAP 9 (8-16); ASPARTATE AMINO TRANSFERASE 14 U/L (10-37); BILIRUBIN,TOTAL 0.3 MG/DL (0.1-1.0); BLOOD UREA NITROGEN 44 MG/DL (7-18); BUN/CREATININE RATIO 26.2 (10.0-20.0); CALCIUM 8.3 MG/DL (8.5-10.1); CHLORIDE 108 MMOL/L (99-107); CHOL/HDL RATIO 2.3 (0.00-4.99); CHOLESTEROL 110 MG/DL (0-200); CREATININE 1.68 MG/DL (0.60-1.10); GLUCOSE 232 MG/DL (70-104); HDL CHOLESTEROL 47 MG/DL (35-60); LDL CHOLESTEROL 57 MG/DL (50-100); MAGNESIUM 2.1 MG/DL (1.5-2.4); POTASSIUM 4.3 MMOL/L (3.5-5.1); SODIUM 141 MMOL/L (135-145); TOTAL CARBON DIOXIDE 23.7 MMOL/L (24-32); TOTAL PROTEIN 5.8 G/DL (6.4-8.2); TRIGLYCERIDES 53 MG/DL (20-135); eCRCL 37 ML/MIN; eGFR 40 ML/MIN
[2024-03-21 07:39] LABS: BASOPHILS # (AUTO) 0.1 X10'3 (0-0.2); BASOPHILS % (AUTO) 0.9 % (0-1); EOSINOPHILS # (AUTO) 0.2 X10'3 (0-0.9); EOSINOPHILS % (AUTO) 2.6 % (0-6); HEMATOCRIT 25.6 % (42.0-52.0); HEMOGLOBIN 8.9 g/dl (14.0-17.9); LYMPHOCYTES # (AUTO) 1.2 X10'3 (1.1-4.8); MEAN CORPUSCULAR HEMOGLOBIN 32.8 PG (27.0-31.0); MEAN CORPUSCULAR HGB CONC 34.9 g/dL (33.0-36.5); MEAN CORPUSCULAR VOLUME 94.1 FL (78-98); MEAN PLATELET VOLUME 9.6 FL (7.4-10.4); MONOCYTES # (AUTO) 0.8 X10'3 (0-0.9); NEUTROPHILS # (AUTO) 3.7 X10'3 (1.8-7.7); NEUTROPHILS % (AUTO) 62.5 % (42-75); PLATELET COUNT 160 X10'3 (140-440); RED BLOOD COUNT 2.72 X10'6 (4.70-6.10); RED CELL DISTRIBUTION WIDTH 13.3 % (11.5-14.5); WHITE BLOOD COUNT 5.9 X10'3 (4.5-11.0)
[2024-03-21] MEDS: K and/or MAG REPLACEMENT MC SCH (08:00)
[2024-03-21] MEDS: pantoprazole 40 MG vial IV SCH (08:28)
[2024-03-21] MEDS ORDERED: MIDAZolam 1 MG/ML 5ML VIAL ONE (12:42)
[2024-03-21] MEDS ORDERED: fentaNYL/PF 50MCG/1 ML 2ML syringe ONE (12:42)
[2024-03-21] MEDS ORDERED: LIDOcaine 2% Viscous 15ml cup ONE (12:42)
[2024-03-21] MEDS ORDERED: diphenhydrAMINE 50 mg/ml inj ONE (12:42)
[2024-03-21] MEDS ORDERED: simethicone 40mg/0.6ml oral drops 30ml ONE (13:20)
[2024-03-21 14:33] LABS: HEMATOCRIT 27.1 % (42.0-52.0); HEMOGLOBIN 9.4 g/dl (14.0-17.9); MEAN CORPUSCULAR HEMOGLOBIN 32.3 PG (27.0-31.0); MEAN CORPUSCULAR HGB CONC 34.5 g/dL (33.0-36.5); MEAN CORPUSCULAR VOLUME 93.7 FL (78-98); MEAN PLATELET VOLUME 9.3 FL (7.4-10.4); PLATELET COUNT 171 X10'3 (140-440); RED CELL DISTRIBUTION WIDTH 13.3 % (11.5-14.5); WHITE BLOOD COUNT 5.2 X10'3 (4.5-11.0)
[2024-03-21 19:36] LABS: HEMATOCRIT 28.3 % (42.0-52.0); HEMOGLOBIN 9.9 g/dl (14.0-17.9); MEAN CORPUSCULAR HEMOGLOBIN 33.1 PG (27.0-31.0); MEAN CORPUSCULAR HGB CONC 34.9 g/dL (33.0-36.5); MEAN CORPUSCULAR VOLUME 94.6 FL (78-98); PLATELET COUNT 184 X10'3 (140-440); RED BLOOD COUNT 2.99 X10'6 (4.70-6.10); RED CELL DISTRIBUTION WIDTH 13.5 % (11.5-14.5); WHITE BLOOD COUNT 6.4 X10'3 (4.5-11.0)
[2024-03-21] MEDS: atorvastatin 20mg tablet PO SCH (20:25)
[2024-03-21] MEDS: morphine 2 MG/ML inj. syringe IV PRN (20:51)
[2024-03-21] MEDS ORDERED: insulin glargine (Lantus) pen - multi-dose SQ SCH (21:00)
[2024-03-21] MEDS: insulin glargine (Lantus) pen - multi-dose SQ SCH (21:10)
[2024-03-21 23:54] LABS: HEMATOCRIT 26.1 % (42.0-52.0); MEAN CORPUSCULAR HEMOGLOBIN 32.5 PG (27.0-31.0); MEAN CORPUSCULAR HGB CONC 34.6 g/dL (33.0-36.5); MEAN CORPUSCULAR VOLUME 93.9 FL (78-98); MEAN PLATELET VOLUME 8.6 FL (7.4-10.4); PLATELET COUNT 169 X10'3 (140-440); RED BLOOD COUNT 2.78 X10'6 (4.70-6.10); RED CELL DISTRIBUTION WIDTH 13.4 % (11.5-14.5); WHITE BLOOD COUNT 6.1 X10'3 (4.5-11.0)
[2024-03-22 05:25] LABS: BILIRUBIN,URINE NEGATIVE (Neg); CLARITY,URINE CLEAR (Clear); COLOR,URINE YELLOW (Yellow); GLUCOSE, URINE 100 mg/dl (Neg); KETONES,URINE NEGATIVE (Neg); LEUKOCYTE ESTERASE ,URINE NEGATIVE (Neg); NITRITES, URINE NEGATIVE (Neg); OCCULT BLOOD,URINE NEGATIVE (Neg); PH,URINE 5.5 (4.8-8.0); PROTEIN,URINE NEGATIVE (Neg); UROBILINOGEN,URINE 0.2 E.U/dL (0.2-1.0)
[2024-03-22 05:28] LABS: UA COLLECTION TYPE CLN CATCH MIDSTREAM
[2024-03-22 06:00] VITALS: BP 159/77; PULSE 67; RESP 14; TEMP 98.8; O2SAT 99
[2024-03-22 06:06] LABS: BASOPHILS # (AUTO) 0.1 X10'3 (0-0.2); BASOPHILS % (AUTO) 0.9 % (0-1); EOSINOPHILS # (AUTO) 0.2 X10'3 (0-0.9); EOSINOPHILS % (AUTO) 2.8 % (0-6); HEMATOCRIT 27.3 % (42.0-52.0); HEMOGLOBIN 9.3 g/dl (14.0-17.9); LYMPHOCYTES # (AUTO) 1.1 X10'3 (1.1-4.8); LYMPHOCYTES % (AUTO) 17.7 % (21-51); MEAN CORPUSCULAR HEMOGLOBIN 32.3 PG (27.0-31.0); MEAN CORPUSCULAR HGB CONC 33.9 g/dL (33.0-36.5); MEAN CORPUSCULAR VOLUME 95.2 FL (78-98); MEAN PLATELET VOLUME 9.2 FL (7.4-10.4); MONOCYTES # (AUTO) 0.7 X10'3 (0-0.9); MONOCYTES % (AUTO) 11.1 % (2-12); NEUTROPHILS # (AUTO) 4.2 X10'3 (1.8-7.7); NEUTROPHILS % (AUTO) 67.5 % (42-75); PLATELET COUNT 176 X10'3 (140-440); RED BLOOD COUNT 2.87 X10'6 (4.70-6.10); RED CELL DISTRIBUTION WIDTH 13.6 % (11.5-14.5); WHITE BLOOD COUNT 6.2 X10'3 (4.5-11.0)
[2024-03-22 06:38] LABS: ALANINE AMINOTRANSFERASE 21 U/L (12-78); ALBUMIN 2.9 G/DL (3.4-5.0); ALKALINE PHOSPHATASE 89 IU/L (46-116); ANION GAP 9 (8-16); ASPARTATE AMINO TRANSFERASE 11 U/L (10-37); BILIRUBIN,TOTAL 0.3 MG/DL (0.1-1.0); BLOOD UREA NITROGEN 36 MG/DL (7-18); CALCIUM 8.3 MG/DL (8.5-10.1); CHLORIDE 112 MMOL/L (99-107); GLUCOSE 137 MG/DL (70-104); MAGNESIUM 2.1 MG/DL (1.5-2.4); POTASSIUM 4.6 MMOL/L (3.5-5.1); SODIUM 146 MMOL/L (135-145); TOTAL CARBON DIOXIDE 24.8 MMOL/L (24-32); TOTAL PROTEIN 5.9 G/DL (6.4-8.2); eCRCL 41 ML/MIN; eGFR 45 ML/MIN
[2024-03-22] MEDS ORDERED: PANT40TA54 PO (07:54)
[2024-03-22 08:00] VITALS: RESP 14; O2SAT 99
[2024-03-22] MEDS ORDERED: acetaminophen 325mg/10.15ml oral unit dose solution PO PRN (09:45)
[2024-03-22] MEDS ORDERED: APIX5TAB3 PO (11:01)
[2024-03-22] MEDS ORDERED: ASPI81TA52 PO (11:01)
== END 2024-03-22 09:30 | disposition home health service (06) | DRG 379 ==
LOC: ER 16:10 → ED HOLD 23:06 → ORTHO 4S 03-21 02:49
PROVIDERS: ADMIT Surgery Surgical Critical Care; ATTEND Nurse Practitioner Family
PROC: 0DB78ZX Excision of Stomach, Pylorus, Via Natural or Artificial Opening Endoscopic, Diagnostic (ICD-10-PCS; principal; 2024-03-21)
DX: K25.4 Chronic or unspecified gastric ulcer with hemorrhage (principal); F03.90 Unspecified dementia, unspecified severity, without behavioral disturbance, psychotic disturbance, mood disturbance, and anxiety; I48.91 Unspecified atrial fibrillation; F17.210 Nicotine dependence, cigarettes, uncomplicated; D50.0 Iron deficiency anemia secondary to blood loss (chronic); I12.9 Hypertensive chronic kidney disease with stage 1 through stage 4 chronic kidney disease, or unspecified chronic kidney disease; N18.30 Chronic kidney disease, stage 3 unspecified; E11.22 Type 2 diabetes mellitus with diabetic chronic kidney disease; Z79.01 Long term (current) use of anticoagulants; Z79.4 Long term (current) use of insulin; Z79.84 Long term (current) use of oral hypoglycemic drugs; Z83.3 Family history of diabetes mellitus; Z86.73 Personal history of transient ischemic attack (TIA), and cerebral infarction without residual deficits
CPT/HCPCS: 36415; 43239; 70450; 71045; 80048; 80053; 80061; 81003; 82272; 82948; 83036; 83735; 83880; 85025; 85027; 85610; 85730; 86885; 86900; 86901; 87081; 93005; 97116; 97161; 97530; 99152; 99285; A4620; A6590; G0378; J1200; J1815; J2250; J2270; J2470; J3010; J7030